=== PATIENT | female | born 1980 | race Hispanic/Latino ===

== ENCOUNTER → 2018-04-11 | Outpatient (CLI) | payer BC | LOC: SLEEP 22:43 | PROVIDERS: ATTEND Internal Medicine | DX: R06.83 Snoring (principal) | CPT/HCPCS: 95806 ==

== ENCOUNTER → 2018-07-17 | Outpatient (CLI) | payer BC ==
--- NOTE | 2018-08-07 04:57 | Polysomnography ---
DATE OF STUDY: July 17, 2018 TITRATION POLYSOMNOGRAM REFERRING PHYSICIAN: Dr. Matthieu Callse, Dr. Patricia Noble Ms. Curiel is a 38-year-old female with obstructive sleep apnea. On May 12, 2018, the patient underwent a diagnostic polysomnogram demonstrating apnea-hypopnea index of 102.5 events per hour with the lowest oxygen saturation of 45%. Current medications are simvastatin, metformin, glimepiride, citalopram, losartan. Patient has Pomeroy sleepiness scale score of 14. Body mass index is 61.3. Patient presents for a titration polysomnogram. FINDINGS: Polysomnogram demonstrated total sleep time of 301.5 minutes with sleep efficiency of 80.7%. CPAP was initiated at 14 cmH2O and incrementally increased to 15 cmH2O. Due to some central apneas and a respiratory rate of 26 breaths per minute, the patient was converted to BiPAP at 14/10 cmH2O and increased to 15/10 cmH2O delivered using a ResMed AirFit P10 extra small nasal pillow mask with heated humidifier. Due to the presence of persistent central apneas, backup rate of 16 breaths per minute was provided in the ST mode. At the optimal BiPAP setting, the apnea-hypopnea index was 0 events per hour with a lowest oxygen saturation of 93%. Of note, side REM sleep was noted. The last REM supine sleep was at 14/10 cmH2O where there are few respiratory events. There was supine sleep towards the end of the study, but the patient did not go back into REM sleep. 251 periodic limb movements of sleep were noted for periodic limb movement index of 69.9 events per hour. These were mostly REM related. There were no significant PLMS that were noted towards the end of the study. Single-lead EKG analysis was demonstrating sinus rhythm mostly and rare PVCs. INTERPRETATION: This overnight airway pressure titration study revealed. 1. Positive airway pressure titration. There was significant improvement in terms of alleviation of obstructive sleep apnea using the optimal BiPAP pressure setting at 15 cm of IPAP and 10 cm of EPAP delivered using a ResMed AirFit P10 nasal pillow mask of size extra small and heated humidifier. Additional backup respiratory rate of [address] mode was provided. The same setting is recommended during sleep. 2. Treatment emergent central sleep apnea. BiPAP with ST mode is recommended this reason. 3. Periodic limb movements in sleep. Periodic limb movements can be seen during CPAP titration and BiPAP titration may subside after compliant use of BiPAP. PLMD (PLMS disorder) can be associated with secondary condition such as restless legs syndrome, iron-deficiency anemia, electrolyte imbalance such as hypomagnesemia, peripheral neuropathy, and use of certain medications. If associated with clinical sleep disturbance or complaint of daytime fatigue after compliant use of BiPAP, further evaluation and management of these factors may be helpful. MD YASMINE Gomez Certified in Sleep Medicine Job#: [id number] CQ MTDD
== END ==
LOC: SLEEP 20:07
PROVIDERS: ATTEND Internal Medicine Critical Care Medicine
DX: G47.33 Obstructive sleep apnea (adult) (pediatric) (principal)
CPT/HCPCS: 95811

== ENCOUNTER → 2018-12-18 | Outpatient (CLI) | payer BC ==
--- NOTE | 2018-12-23 12:54 | Diagnostic Imaging Report ---
#[id number] - MGSCRBIL #BILATERAL FIRST EVER DIGITAL SCREENING MAMMOGRAM WITH CAD: 12/18/2018 CLINICAL: Routine screening. Baseline exam. No prior exams were available for comparison. The tissue of both breasts is predominantly fatty. Current study was also evaluated with a Computer Aided Detection (CAD) system. There is a mass in the right breast at 11 o'clock anterior depth. No other significant masses, calcifications, or other findings are seen in either breast. IMPRESSION: INCOMPLETE: NEEDS ADDITIONAL IMAGING EVALUATION The mass in the right breast is indeterminate. Additional views with possible ultrasound are recommended. The patient will be contacted by the Mammography Department to schedule this appointment. KRISTINA GLYNN M.D., mc/timothy:12/23/2018 11:23:41 Petroleum Engineering Teacher: Maday HUFFMAN)(Toni), [facility] letter sent: Additional Imaging Needed Mammogram BI-RADS: 0 Indeterminate
== END ==
LOC: MAMMO 09:42
PROVIDERS: ATTEND Internal Medicine
DX: Z12.31 Encounter for screening mammogram for malignant neoplasm of breast (principal)
CPT/HCPCS: 77067

== ENCOUNTER → 2019-01-06 | Outpatient (CLI) | payer BC ==
--- NOTE | 2019-01-07 08:49 | Diagnostic Imaging Report ---
#[id number] - USBRELIMRT ULTRASOUND OF THE RIGHT BREAST : 01/06/2019 Comparison is made to exams dated: 01/06/2019 mammogram and 12/18/2018 mammogram - [facility]. Color flow and real-time ultrasound were performed on the right breast at the area of interest at 11 o'clock. -There is an oblong cystic lesion measuring 1.0 x 0.5 x 0.2 cm likely representing a focally dilated duct. IMPRESSION: PROBABLY BENIGN - FOLLOW-UP RECOMMENDED A follow-up ultrasound in 6 months is recommended to demonstrate stability. The patient was instructed of these findings and the need for 1 time followup. Gonzalez Dwyer Jr., D.O. cw/:01/06/2019 17:13:07 Lithographic Press Operator Apprentice: SARY MORRISON RDMS, [facility] letter sent: Followup Recommended Ultrasound BI-RADS: 3 Probably benign
--- NOTE | 2019-01-07 08:49 | Diagnostic Imaging Report ---
#[id number] - MGDXRT #UNILATERAL RIGHT DIGITAL DIAGNOSTIC MAMMOGRAM WITH SPOT COMPRESSION: 01/06/2019 Comparison is made to exam dated: 12/18/2018 mammogram - [facility]. Current study contains 3 films. The tissue of the right breast is predominantly fatty. Focal spot compression confirms a small oblong mass at the 11 o'clock position. Focused ultrasound is recommended and will follow this study. IMPRESSION: INCOMPLETE: NEEDS ADDITIONAL IMAGING EVALUATION Focused ultrasound is recommended for the small mass. This study will follow. Gonzalez Dwyer Jr., D.O. cw/:01/06/2019 17:06:42 Priming Machine Operator: Maday GRIGSBY(R)(M), [facility] letter sent: Additional Imaging Needed Mammogram BI-RADS: 0 Indeterminate
== END ==
LOC: MAMMO 13:37
PROVIDERS: ATTEND Internal Medicine
DX: N63.10 Unspecified lump in the right breast, unspecified quadrant (principal)